=== PATIENT | female | born 1985 | race Caucasian/White ===

== ENCOUNTER 2019-07-31 11:35 | Emergency (ER) | payer OTHER ==
--- NOTE | 2019-07-31 12:29 | ED ---
Headache - HPI Summary HPI Summary: Patient is a 34-year-old female who presents emergency department for evaluation of headache and head injury that occurred a week ago. Patient states a week ago she tripped going down stairs and hit the top of her head off of a concrete wall. Patient denies loss of consciousness. She noted headache that persisted the next few days. Patient states headache has been to left side of her face. Patient states she went to an urgent care was given an injection of a pain medication and headache significantly improved. Patient states headache has been intermittent and severe at times. Patient notes a pressure behind her left thigh and a bit of sinus congestion. Patient denies fever, numbness, tingling, weakness, neck pain. She has no history of migraine headaches. Patient saw her family doctor today who referred to the ER for imaging given ongoing headache and injury. - History Of Current Complaint Chief Complaint: EDHeadache Stated Complaint: HEADACHE Time Seen by Provider: 07/31/19 12:27 Hx Obtained From: Patient - Allergies/Home Medications Allergies/Adverse Reactions: Allergies Allergy/AdvReac Type Severity Reaction Status Date / Time ampicillin Allergy Nausea And Verified 07/31/19 11:43 Vomiting promethazine Allergy Airway Verified 07/31/19 11:43 Obstruction PMH/Surg Hx/FS Hx/Imm Hx Previously Healthy: Yes Endocrine/Hematology History: Reports: Hx Thyroid Disease - unspecified Psychiatric History: Reports: Hx Anxiety, Hx Depression - No meds - Surgical History Surgery Procedure, Year, and Place: [facility] 1996. Infectious Disease History: No Infectious Disease History: Denies: Traveled Outside the [place] in Last 30 Days - Family History Known Family History: Negative: Cardiac Disease, Hypertension, Diabetes Family History: Skin cancer (father), stomach tumors (mother). Both parents are alive and well. - Social History Occupation: Employed Full-time Lives: With Family Alcohol Use: None Substance Use Type: Reports: None Smoking Status (MU): Former Smoker Review of Systems Constitutional: Negative Negative: Fever Positive: Photophobia Positive: Nasal Discharge Cardiovascular: Negative Respiratory: Negative Gastrointestinal: Negative Negative: Vomiting Skin: Negative Negative: Rash Positive: Headache. Negative: Weakness, Paresthesia, Numbness, Syncope All Other Systems Reviewed And Are Negative: Yes Physical Exam Triage Information Reviewed: Yes Vital Signs On Initial Exam: Initial Vitals Temp Pulse Resp BP Pulse Ox 100.1 F 94 18 138/91 96 11/04/19 11:40 07/31/19 11:40 07/31/19 11:40 07/31/19 11:40 07/31/19 11:40 Vital Signs Reviewed: Yes Appearance: Positive: Well-Appearing - Pt. sitting on chair in NAD. Anxious. Father present. Skin: Positive: Warm, Dry Head/Face: Positive: Normal Head/Face Inspection. Negative: Cephalohematoma Eyes: Positive: Normal, EOMI, ROLLY, Conjunctiva Clear ENT: Positive: Pharyngeal erythema, TMs normal, Other - Signficiant pain over left frontal sinus. Neck: Positive: Supple, Nontender. Negative: Nuchal Rigidity Respiratory/Lung Sounds: Positive: Clear to Auscultation, Breath Sounds Present Cardiovascular: Positive: Normal, RRR Musculoskeletal: Positive: Normal, Strength/ROM Intact Neurological: Positive: Normal, Sensory/Motor Intact, Alert, Oriented to Person Place, Time, CN Intact II-III, Finger to Nose - normal, Facial Symmetry, Speech Normal. Negative: Pronator Drift Present Psychiatric: Positive: Affect/Mood Appropriate Procedures - Sedation Patient Received Moderate/Deep Sedation with Procedure: No Diagnostics - Vital Signs Vital Signs Temp Pulse Resp BP Pulse Ox 07/31/19 11:40 100.1 F 94 18 138/91 96 - Laboratory Result Diagrams: 07/31/19 13:14 07/31/19 13:14 Lab Statement: Any lab studies that have been ordered have been reviewed, and results considered in the medical decision making process. Headache Course/Dx - Course Course Of Treatment: Patient with intermittent headache after injury. Headache is minimal in the ER at this time. Patient has significant pain to palpation over left frontal sinus. She has a low-grade fever in the ER. No neck pain or no current rigidity to suspect meningitis. Brain CT was obtained to rule out bleed, tumor. Basic labs obtained and unremarkable other than minimally elevated CRP. Patient notes she was recently bit by a tick, Lyme titer pending. Brain CT is negative for acute traumatic injuries per radiology. They do note thickening of the ethmoid sinus. Patient's symptoms may be secondary to postconcussive syndrome, cluster headache, sinusitis. Given sinus tenderness on palpation Will try a course of antibiotics and Flonase. Advised to continue ibuprofen as directed. To call family doctor today for close follow -up appointment for reexamination. She'll return if symptoms change or worsen. Patient understands and agrees with plan. - Diagnoses Differential Diagnosis/HQI/PQRI: Subdural Hematoma, Meningitis, Migraine, Tension Headache Provider Diagnoses: Post concussion syndrome, Sinusitis, Cephalalgia Discharge ED - Sign-Out/Discharge Documenting (check all that apply): Patient Departure - Discharge Plan Condition: Good Disposition: HOME Prescriptions: Amoxicillin/Clavulanate TAB* [Augmentin TAB 875*] 875 mg PO BID #20 tab Fluticasone NASAL SPRAY 50MCG* [Flonase NASAL SPRAY 50MCG*] 2 spray BOTH NARES DAILY #1 btl Patient Education Materials: Sinusitis (ED), Acute Headache (ED), Post Concussion Syndrome (ED) Referrals: Shahnaz Yanez PA [Primary Care Provider] - Additional Instructions: Call PCP today for a close follow up appointment for re-evaluation Take medication as directed Continue ibuprofen 400mg every 6 hours for headache Avoid TV/cellphone/computer screens Return to ER if symptoms change or worsen - Billing Disposition and Condition Condition: GOOD Disposition: Home
[2019-07-31 13:22] LABS: ABS Lymphocytes 1.4 10^3/ul (1.0-4.8); ABS Monocytes 0.5 10^3/ul (0-0.8); ABS Neutrophils 4.4 10^3/ul (1.5-7.7); Eosinophil % 0.5 %; Hematocrit 42 % (35-47); Hemoglobin 13.8 g/dL (12.0-16.0); Lymphocyte % 22.3 %; Mean Corpuscular HGB Conc 33 g/dL (31-36); Mean Corpuscular Hemoglobin 32 pg (27-31); Mean Corpuscular Volume 96 fL (80-97); Nucleated Red Blood Cells % 0.1; Platelet Count 258 10^3/uL (150-450); Red Blood Count 4.33 10^6 /uL (3.70-4.87); Red Cell Distribution Width 13 % (10-15); White Blood Count 6.3 10^3/uL (3.5-10.8)
[2019-07-31 13:39] LABS: Albumin 4.2 g/dL (3.2-5.2); Albumin/Globulin Ratio 1.3 (1-3); BUN/Creatinine Ratio 21.2 (8-20); C Reactive Protein 12.54 mg/L (<8.01); Calcium 9.7 mg/dL (8.6-10.3); EGFR African American 122.6 (>60); EGFR Non-African American 101.3 (>60); Globulin 3.2 g/dL (2-4); Potassium 4.2 mmol/L (3.5-5.0); Total Bilirubin 0.4 mg/dL (0.2-1.0); Total Protein 7.4 g/dL (6.4-8.9)
[2019-07-31 15:18] VITALS: BP 109/76
[2019-08-02 22:35] LABS: B garinii/B afzelii PCR Negative (Negative); B mayonii PCR Negative (Negative)
== END 2019-07-31 14:30 | disposition home or self-care (01) ==
LOC: ED 11:35
DX: G44.309 Post-traumatic headache, unspecified, not intractable (principal); F07.81 Postconcussional syndrome; J01.90 Acute sinusitis, unspecified; Z88.1 Allergy status to other antibiotic agents; Z88.8 Allergy status to other drugs, medicaments and biological substances; E07.9 Disorder of thyroid, unspecified; F41.9 Anxiety disorder, unspecified; F32.9 Major depressive disorder, single episode, unspecified; Z87.891 Personal history of nicotine dependence
CPT/HCPCS: 36415; 70450; 80053; 85025; 86140; 87476; 87798; 99282